=== PATIENT | female | born 1965 | race African-American/Black ===

== ENCOUNTER 2016-10-17 10:01 | Emergency (ER) | payer MEDICAID, OTHER ==
[~2016-10-17] VITALS: Ht 157.5 cm; Wt 79.0 kg
[~2016-10-17 10:01] MED LIST: LEVO50TA8 PO
[2016-10-17] MEDS ORDERED: KETOROLAC 60MG/2ML VIAL IM ONE (11:15)
[2016-10-17 11:25] VITALS: BP 130/75
== END 2016-10-17 12:50 | disposition home or self-care (01) ==
LOC: ER 10:01
DX: J20.9 Acute bronchitis, unspecified (principal); R07.81 Pleurodynia; S22.42XD Multiple fractures of ribs, left side, subsequent encounter for fracture with routine healing; X58.XXXD Exposure to other specified factors, subsequent encounter
CPT/HCPCS: 71101; 96372; 99284; J1885; 99283